=== PATIENT | male | born 1950 | race African-American/Black ===

== ENCOUNTER 2021-01-20 12:09 | Emergency (ER) | payer OTHER ==
[~2021-01-20] VITALS: Ht 177.8 cm; Wt 83.9 kg
[2021-01-20 12:35] LABS: ABSOLUTE NEUTROPHILS 3.1 thou/uL (1.4-8.2); EOSINOPHILS 3.9 % (0.0-3.0); HEMATOCRIT 42.8 % (42.0-52.0); LYMPHOCYTES 32.7 % (24.0-44.0); MCH 28.9 pg (26.0-34.0); MCHC 32.6 g/dL (28.0-37.0); MCV 88.5 fL (80.0-100.0); MONOCYTES 7.5 % (1.0-8.0); PLATELET COUNT 191 thou/uL (150-400); POLYS 54.9 % (36.0-66.0); RBC 4.84 mil/uL (4.50-6.00); RDW 13.1 % (10.5-14.5); WBC 5.7 thou/uL (4.0-11.0)
[2021-01-20 12:42] LABS: CALCIUM 7.8 mg/dL (8.5-10.1); CREATININE 1.2 mg/dL (0.7-1.3); POTASSIUM 3.5 mmol/L (3.5-5.1)
[2021-01-20 12:52] LABS: ALBUMIN 3.3 g/dL (3.4-5.0); TOTAL BILIRUBIN 0.7 mg/dL (0.2-1.0); TOTAL PROTEIN 6.2 g/dL (6.4-8.2)
[2021-01-20 14:54] VITALS: BP 152/94
--- NOTE | 2021-01-22 07:31 | EKG ---
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: LUCIE : 1950 Requested By: Shorty Echols Order Number: [id number] MD: Henrry Sanders Measurements Intervals [place] Rate: 64 P: 43 PA: 183 QRS: -15 QRSD: 98 T: 34 QT: 410 QTc: 423 Interpretive Statements Sinus rhythm Borderline left axis deviation Borderline ST elevation, lateral leads No previous ECG available for comparison Electronically Signed On 01-22-2021 7:30:55 CDT by Henrry Sanders [email or web address] <ELECTRONICALLY SIGNED> By: Henrry Sanders MD, [facility] 01/22/21 0730 1211 1211 Henrry Sanders MD, FACC /EPI
== END 2021-01-20 14:54 | disposition home or self-care (01) ==
LOC: ER 12:09
PROVIDERS: Emergency Medicine
DX: E86.0 Dehydration (principal); R55 Syncope and collapse